=== PATIENT | male | born 1995 | race African-American/Black ===

== ENCOUNTER 2017-10-24 19:42 | Emergency (ER) | payer OTHER ==
[~2017-10-24] VITALS: Ht 188 cm; Wt 77.1 kg
[2017-10-24 19:46] VITALS: BP 159/67
[2017-10-24] MEDS ORDERED: ATIVAN1 MG PO (20:55)
== END 2017-10-24 21:05 | disposition home or self-care (01) ==
LOC: ER 19:42
DX: F41.9 Anxiety disorder, unspecified (principal); F17.200 Nicotine dependence, unspecified, uncomplicated